=== PATIENT | male | born 1965 | race Caucasian/White ===

== ENCOUNTER 2017-07-06 18:51 | Emergency (ER) | payer MEDICAID ==
[~2017-07-06] VITALS: Ht 167.6 cm; Wt 93.2 kg
[2017-07-06 18:54] VITALS: BP 164/85
[2017-07-06] MEDS ORDERED: FURO40I IM (18:58)
[2017-07-06] MEDS ORDERED: TRAZ-147 PO (18:58)
[2017-07-06] MEDS ORDERED: SPIR50 PO (18:58)
[2017-07-06] MEDS ORDERED: GABA-529 PO (18:58)
[2017-07-06 20:15] LABS: BASOPHILS % (AUTO) 0.3 % (0.0-2.0); EOSINOPHILS % (AUTO) 2.8 % (1.0-6.0); HEMATOCRIT 34.7 % (41-53); HEMOGLOBIN 12.5 g/dL (13.5-17.5); LYMPHOCYTES # (AUTO) 2.1 K/uL (1.0-4.8); LYMPHOCYTES % (AUTO) 32.9 % (22.0-44.0); MEAN CORPUSCULAR HEMOGLOBIN 32.9 pg (26.0-34.0); MEAN CORPUSCULAR HGB CONC 35.9 G/dL (31.0-37.0); MEAN CORPUSCULAR VOLUME 92 fL (80-100); MONOCYTES # (AUTO) 0.7 K/uL (0.1-1.0); MONOCYTES % (AUTO) 11.2 % (2.0-9.0); NEUTROPHILS # (AUTO) 3.4 K/uL (1.8-7.7); NEUTROPHILS % (AUTO) 52.8 % (40.0-70.0); RED BLOOD CELL COUNT(AUTO) 3.78 MIL/uL (4.50-5.90); RED CELL DISTRIBUTION WIDTH 13.1 % (11.5-14.5); WHITE BLOOD COUNT (AUTO) 6.5 K/uL (4.5-11.0)
[2017-07-06 20:31] LABS: TROPONIN I 0.02 ng/mL (0.00-0.05)
[2017-07-06 20:38] LABS: ANION GAP 9 mmol/L (8-16); CARBON DIOXIDE 24 mmol/L (22-29); CHLORIDE 105 mmol/L (98-107); CREATININE 1.07 mg/dL (0.60-1.30); GLOMERULAR FILTR. RATE CALC > 60 mL/min (>60); PLATELET COUNT (AUTO) 75 K/uL (150-450); POTASSIUM 3.5 mmol/L (3.5-5.1); SODIUM SERUM 138 mmol/L (136-145); UREA NITROGEN, BLOOD 24 mg/dL (7-18)
[2017-07-06 20:50] LABS: ALANINE AMINOTRANSFERASE 36 U/L (12-78); ALBUMIN 2.5 g/dL (3.4-5.0); ASPARTATE AMINOTRANSFERASE 59 U/L (15-37); BILIRUBIN,TOTAL 1.4 mg/dL (0.1-1.0); TOTAL PROTEIN, SERUM 5.1 g/dL (6.4-8.2)
[2017-07-06 20:53] LABS: B-TYPE NATRIURETIC PEPTIDE 106 pg/mL (0-100)
[2017-07-06] MEDS ORDERED: IBUPROFEN 800 MG TABLET PO ONE (21:30)
[2017-07-06] MEDS ORDERED: DIAZEPAM 5 MG TABLET PO ONE (21:45)
== END 2017-07-06 22:29 | disposition home or self-care (01) ==
LOC: EMS 18:53
DX: F41.9 Anxiety disorder, unspecified (principal); R42 Dizziness and giddiness; R60.0 Localized edema; F17.210 Nicotine dependence, cigarettes, uncomplicated; G89.29 Other chronic pain; Z88.5 Allergy status to narcotic agent
CPT/HCPCS: 93005; 99285

== ENCOUNTER 2017-07-07 06:35 | Emergency (ER) | payer MEDICAID ==
[~2017-07-07] VITALS: Ht 167.6 cm; Wt 102.0 kg
[~2017-07-07 06:35] MED LIST: FURO40I IM; GABA-529 PO; SPIR50 PO; TRAZ-147 PO
[2017-07-07 07:25] VITALS: BP 161/80
== END 2017-07-07 08:33 | disposition home or self-care (01) ==
LOC: EMS 06:36
DX: Z76.0 Encounter for issue of repeat prescription (principal); I10 Essential (primary) hypertension; F10.20 Alcohol dependence, uncomplicated; F17.210 Nicotine dependence, cigarettes, uncomplicated; Z59.0 Homelessness; Z88.5 Allergy status to narcotic agent
CPT/HCPCS: 99283; 99406